=== PATIENT | female | born 1995 | race Caucasian/White ===

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

== ENCOUNTER 2018-10-20 22:27 | Emergency (ER) | payer MEDICAID ==
[~2018-10-20] VITALS: Ht 162.6 cm; Wt 69.2 kg
[2018-10-20 22:39] VITALS: BP 116/76
--- NOTE | 2018-10-20 23:12 | NUR ---
PT AMBULATES FROM LOBBY TO ROOM WITH STEADY GAIT.
[2018-10-20 23:14] LABS: MICROSCOPIC INDICATED
[2018-10-20] MEDS ORDERED: ONDANSETRON 2MG/ML, 2ML IVPush ONE (23:30)
[2018-10-20] MEDS ORDERED: SODIUM CHLORIDE FLUSH 10ML SYR IVF ONE (23:30)
[2018-10-20] MEDS ORDERED: SODIUM CHLORIDE 0.9% 1,000ML IVBOLUS ONE (23:30)
--- NOTE | 2018-10-20 23:46 | NUR ---
PT MEDICATED PER MAR.
[2018-10-20] MEDS ORDERED: ONDANSETRON 2MG/ML, 2ML ONE (23:48)
[2018-10-20 23:53] LABS: BASOPHILS # (AUTO) 0.03 x10^3/uL (0-0.1); BASOPHILS % (AUTO) 0 % (0-1); EOSINOPHILS # (AUTO) 0.17 x10^3/uL (0-0.4); EOSINOPHILS % (AUTO) 2 % (1-7); LYMPHOCYTES # (AUTO) 2.12 x10^3/uL (1-3.4); LYMPHOCYTES % (AUTO) 23 % (22-44); MD NO; MEAN CORPUSCULAR HEMOGLOBIN 30.8 pg (27.0-34.8); MEAN CORPUSCULAR VOLUME 93.1 fL (80-100); MEAN PLATELET VOLUME 7.3 fL (7.4-10.4); MONOCYTES # (AUTO) 0.65 x10^3/uL (0.2-0.8); MONOCYTES % (AUTO) 7 % (2-9); NEUTROPHILS % (AUTO) 68 % (42-75); PLATELET COUNT 242 x10^3/uL (130-400); RED BLOOD COUNT 4.12 x10^6/uL (3.82-5.3); RED CELL DISTRIBUTION WIDTH 13.7 % (9.6-15.2)
[2018-10-21 00:04] LABS: ALBUMIN 3.6 g/dL (3.4-5.0); ANION GAP 7 mmol/L (5-15); CALCIUM 8.8 mg/dL (8.5-10.1); CHLORIDE 104 mmol/L (98-107)
[2018-10-21 00:23] LABS: ALANINE AMINOTRANSFERASE 112 U/L (12-78); ALKALINE PHOSPHATASE 54 U/L (45-117); BILIRUBIN,TOTAL 0.4 mg/dL (0.2-1.0); CREATININE 0.55 mg/dL (0.55-1.02); TOTAL PROTEIN 6.5 g/dL (6.4-8.2)
--- NOTE | 2018-10-21 00:56 | NUR ---
PT TO US VIA [facility]E
--- NOTE | 2018-10-21 01:08 | NUR ---
PT BACK FROM US AT THIS TIME VIA STEVE.
--- NOTE | 2018-10-21 02:10 | NUR ---
PT D/C WITH D/C SUMMARY AND SCRIPTS. PT VERBALIZES UNDERSTANDING OF NEED FOR F/U OB APPT. PT AMBULATES TO REGISTRATION DESK WITH STEADY GAIT FOR D/C HOME. PT DENIES ANY OTHER NEEDS PERTAINING TO THIS VISIT. PT D/C IN CARE OF PARTNER.
== END 2018-10-21 02:12 | disposition home or self-care (01) ==
LOC: ED 10-21 00:13
DX: O21.9 Vomiting of pregnancy, unspecified (principal); O99.321 Drug use complicating pregnancy, first trimester; Z3A.08 8 weeks gestation of pregnancy; F12.90 Cannabis use, unspecified, uncomplicated
CPT/HCPCS: 36415; 76801; 80053; 81001; 83690; 84702; 85025; 96361; 96374; 99284; J2405; J7030; 84703